=== PATIENT | male | born 1935 | race Caucasian/White ===

== ENCOUNTER 2016-10-11 16:55 | Emergency (ER) | payer MEDICARE, BC ==
[2016-10-11] MEDS ORDERED: NS 0.9% 1000 ML* 1,000 ML IV ONE (17:02)
[2016-10-11] MEDS ORDERED: Ondansetron INJ* 2 MG/ML VIAL IV ONE (17:02)
[2016-10-11 17:42] LABS: Hematocrit 40 % (42-52); Hemoglobin 12.9 g/dl (14.0-18.0); Mean Corpuscular HGB Conc 33 g/dl (31-36); Mean Corpuscular Hemoglobin 29 pg (27-31); Mean Corpuscular Volume 90 fL (80-94); Mean Platelet Volume 9 um3 (7.4-10.4); Red Cell Distribution Width 15 % (10.5-15); White Blood Count 8.5 10^3/ul (3.5-10.8)
[2016-10-11 18:04] LABS: Potassium 4.2 mmol/L (3.5-5.0)
[2016-10-11 18:05] LABS: Albumin 4.2 g/dL (3.2-5.2); BUN/Creatinine Ratio 15.5 (8-20); C Reactive Protein 2.86 mg/L (< 5.00); Calcium 9.5 mg/dL (8.6-10.3); EGFR African American 48.7 (>60); EGFR Non-African American 37.8 (>60); Magnesium 1.9 mg/dL (1.9-2.7); Total Bilirubin 0.6 mg/dL (0.2-1.0); Total Protein 7.2 g/dL (6.4-8.9)
[2016-10-11 19:06] VITALS: BP 151/97
--- NOTE | 2016-10-11 19:17 | RAD ---
INDICATION: Emesis x2 COMPARISON: None TECHNIQUE: Multiple views of the abdomen were obtained. FINDINGS: The small bowel and colon appear nondistended. There is stool seen throughout the length of the colon but no radiographically apparent pathologic dilatation is seen. No free intraperitoneal air is seen. No grossly abnormal or pathologic appearing calcifications are noted. Visualized bones are within normal limits for the patient's age. IMPRESSION: Normal abdominal radiograph.
--- NOTE | 2016-10-12 16:05 | ED ---
Estela Stephenson Alfonso, scribed for Jeffy Madrigal MD on 10/11/16 at 1751 . Complex/Multi-Sys Presentation - HPI Summary HPI Summary: This patient is an 80 year old M [place] to [facility] accompanied by with a chief complaint of involuntary spasms all over my body since earlier today. He reports that the spasms have decreased tremendously. The patient rates the pain 0/10 in severity. Symptoms aggravated and alleviated by nothing. Patient reports~vomiting (twice), and anxiousness. Patient denies~CP, SOB, headache, and abdominal pain. He is on NC on arrival. No PMHx of Parkinsons. PMHx of hypothyroidism, cardiomyopathy, and arthritis. - History Of Current Complaint Chief Complaint: EDGeneral Time Seen by Provider: 10/11/16 16:59 Hx Obtained From: Patient Onset/Duration: Sudden Onset, Lasting Hours - Earlier today, Still Present - "decreased tremendously." Timing: Constant Severity Currently: Moderate Severity Initially: Moderate Aggravating Factor(s): Nothing. Alleviating Factor(s): Nothing. Associated Signs And Symptoms: Positive: Other - Patient reports vomiting (twice ), and anxiousness. Patient denies CP, SOB, headache, and abdominal pain. - Allergies/Home Medications Allergies/Adverse Reactions: Allergies Allergy/AdvReac Type Severity Reaction Status Date / Time No Known Allergies Allergy Verified 10/15/14 12:58 PMH/Surg Hx/FS Hx/Imm Hx Endocrine/Hematology History: Reports: Hx Thyroid Disease - Hypo Denies: Hx Diabetes Cardiovascular History: Reports: Hx Pacemaker/ICD, Other Cardiovascular Problems /Disorders - Cardiomyopathy; Pacemaker Denies: Hx Hypertension Respiratory History: Reports: Hx Sleep Apnea - current CPAP user Denies: Hx Asthma, Hx Chronic Obstructive Pulmonary Disease (COPD) GI History: Reports: Hx Gastroesophageal Reflux Disease Denies: Hx Ulcer Musculoskeletal History: Reports: Hx Arthritis - HAND, KNEES Sensory History: Reports: Hx Contacts or Glasses Denies: Hx Hearing Aid Opthamlomology History: Reports: Hx Contacts or Glasses Psychiatric History: Reports: Other Psychiatric Issues/Disorders - Negative Parkinsons - Surgical History Surgery Procedure, Year, and Place: Pacemaker/Defibrillator, Ganglion cyst removed from left thumb 2013 Hx Anesthesia Reactions: No Infectious Disease History: No Infectious Disease History: Denies: Hx Clostridium Difficile, Hx Hepatitis, Hx Human Immunodeficiency Virus (HIV), Hx of Known/Suspected MRSA, Hx Shingles, Hx Tuberculosis, Hx Known/ Suspected VRE, Hx Known/Suspected VRSA, History Other Infectious Disease, Traveled Outside the [place] in Last 30 Days - Family History Known Family History: Negative: Respiratory Disease - Social History Alcohol Use: Daily Alcohol Amount: 1 GLASS/DAY Wine Substance Use Type: Reports: None Smoking Status (MU): Former Smoker Type: Cigarettes Amount Used/How Often: 1PPD 30 YRS Have You Smoked in the Last Year: No Review of Systems Negative: Chest Pain Negative: Shortness Of Breath Positive: Vomiting - Twice. Negative: Abdominal Pain Neurological: Other - Positive involuntary spasms all over my body Negative: Headache Positive: Anxious All Other Systems Reviewed And Are Negative: Yes Physical Exam - Summary Physical Exam Summary: VITAL SIGNS: Reviewed. GENERAL: Patient is a well-developed and nourished male who is lying comfortable in the stretcher. Patient is not in any acute respiratory distress. HEAD AND FACE: No signs of trauma. No ecchymosis, hematomas or skull depressions. No sinus tenderness. EYES: PERRLA, EOMI x 2, No injected conjunctiva, no nystagmus. No photophobia. EARS: Hearing grossly intact. Ear canals and tympanic membranes are within normal limits. MOUTH: Oropharynx within normal limits. NECK: Supple, trachea is midline, no adenopathy, no JVD, no carotid bruit, no c- spine tenderness, neck with full ROM. No meningeal signs, no Kernig's or brudzinskis signs. CHEST: Symmetric, no tenderness at palpation. Pacemaker defibrillator in the left side of the chest. LUNGS: Clear to auscultation bilaterally. No wheezing or crackles. CVS: Regular rate and rhythm, S1 and S2 present, no murmurs or gallops appreciated. ABDOMEN: Soft, non-tender. No signs of distention. No rebound no guarding, and no masses palpated. Bowel sounds are normal. EXTREMITIES: FROM in all major joints, no edema, no cyanosis or clubbing. NEURO: Alert and oriented x 3. No acute neurological deficits. Speech is normal and follows commands. Slight involuntary essential tremors. SKIN: Dry and warm GCS: 15 Triage Information Reviewed: Yes Vital Signs On Initial Exam: Initial Vitals BP 127/54 10/11/16 17:28 Vital Signs Reviewed: Yes - Bonnie Coma Scale Coma Scale Total: 15 Diagnostics - Vital Signs Vital Signs Temp Pulse Resp BP Pulse Ox 10/11/16 17:30 98.1 F 81 26 120/69 94 10/11/16 17:29 87 25 93 10/11/16 17:28 127/54 - Laboratory Lab Results: Lab Results 10/11/16 Range/Units 17:20 WBC 8.5 (3.5-10.8) 10^3/ul RBC 4.40 (4.0-5.4) 10^6/ul Hgb 12.9 L (14.0-18.0) g/dl Hct 40 L (42-52) % MCV 90 (80-94) fL MCH 29 (27-31) pg MCHC 33 (31-36) g/dl RDW 15 (10.5-15) % Plt Count 183 (150-450) 10^3/ul MPV 9 (7.4-10.4) um3 Neut % (Auto) 93.3 H (38-83) % Lymph % (Auto) 3.9 L (25-47) % [place] % (Auto) 2.3 (1-9) % Eos % (Auto) 0.3 (0-6) % Baso % (Auto) 0.2 (0-2) % Absolute Neuts (auto) 8.0 H (1.5-7.7) 10^3/ul Absolute Lymphs (auto) 0.3 L (1.0-4.8) 10^3/ul Absolute Monos (auto) 0.2 (0-0.8) 10^3/ul Absolute Eos (auto) 0 (0-0.6) 10^3/ul Absolute Basos (auto) 0 (0-0.2) 10^3/ul Absolute Nucleated RBC 0 10^3/ul Nucleated RBC % 0 Result Diagrams: 10/11/16 17:20 10/11/16 17:20 Lab Statement: Any lab studies that have been ordered have been reviewed, and results considered in the medical decision making process. - Radiology Abdomen X-Ray Radiology Interpretation Completed By: ED Physician - without any acute pathology - EKG 1716 Cardiac Rate: NL - BPM 80 ST Segment: Normal EKG Interpretation: Atrial paced rhythm Complex Multi-Symp Course/Dx Course Of Treatment: This patient is an 80 year old M [place] to [facility] accompanied by with a chief complaint of involuntary spasms all over my body since earlier today. He reports that the spasms have decreased tremendously. The patient rates the pain 0/10 in severity. Symptoms aggravated and alleviated by nothing. Patient reports vomiting (twice), and anxiousness. Patient denies CP, SOB, headache, and abdominal pain. He is on NC on arrival. No PMHx of Parkinson s. PMHx of hypothyroidism, cardiomyopathy, and arthritis. Assessment/Plan: Test results with no significant abnormalities except for an increased BUN and creatinine, possibly secondary to his dehydration. Abdominal X -ray without any acute pathology. In the ED course the patient was hydrated and given Zofran for nausea and vomiting and her symptoms have resolved. The patient is hemodynamically stable and alert and oriented to person, place, and time. I discussed all the findings and test results with the patient. Patient was instructed to return to the emergency room immediately if any of the symptoms return or worsens. Patient understands and agrees. Plan of care was discussed with the patient and patient understands and agrees with the plan of care. All questions were answered at patient satisfaction. There were no further complaints or concerns. Patient is alert and oriented x 3. Patient vital signs are stable. Patient is to follow up with primary care physician in the next 2 to 3 days. Patient understands and agrees. - Diagnoses Provider Diagnoses: Dehydration, Tremor Discharge - Discharge Plan Condition: Stable Disposition: HOME Patient Education Materials: Dehydration (ED), Tremors (ED) Referrals: Jeffy Grider MD [Primary Care Provider] - 3 Days The documentation as recorded by the Estela rey Alfonso accurately reflects the service I personally performed and the decisions made by me, Jeffy Madrigal MD.
== END 2016-10-11 19:19 | disposition home or self-care (01) ==
LOC: ED 16:55
DX: E86.0 Dehydration (principal); R25.1 Tremor, unspecified; R11.10 Vomiting, unspecified; F41.9 Anxiety disorder, unspecified; Z87.891 Personal history of nicotine dependence
CPT/HCPCS: 36415; 74020; 80053; 83605; 83690; 83735; 83880; 85025; 86140; 93005; 96374; 99283; J2405